=== PATIENT | male | born 1970 | race Caucasian/White ===

== ENCOUNTER 2017-07-25 05:30 | Day surgery (SDC) | payer OTHER ==
[2017-07-24 12:53] VITALS: BMI 28.1
--- NOTE | 2017-07-25 08:07 | HP ---
Satellite H - Chief Complaint Chief Complaint: left ankle fx - Past Medical History Allergies/Adverse Reactions: Allergies Allergy/AdvReac Type Severity Reaction Status Date / Time No Known Allergies Allergy Verified 07/25/17 06:51 - Current Medications Current Medications: Home Medications Medication Instructions Recorded Oxycodone HCl/Acetaminophen 1 - 2 tab PO Q6H #50 tab MDD 8 07/25/17 [Percocet 5-325 mg Tablet] Satellite Physical Exam - Physical Examination Vital Signs: Vital Signs Period Temp Pulse Resp BP Sys/Tavera Pulse Ox Last 24 Hr 98.5 F 78 16 119/82 97 General Appearance: Well Nourished, Well Developed, Alert & Oriented x3 ENT: Clear Lung: Normal air movement Heart: Regular rate & rhythm Extremities: Other (left ankle- + swelling, + ttp, dec rom, nvi xrays show displaced distal tibia and fibula fx) Neurological: Intact, Alert, Oriented Satellite Impression/Plan - Impression/Plan Impression: left ankle fx Operative Procedure: left ankle orif Date to be Performed: 07/25/17
[2017-07-25] MEDS ORDERED: MIDAZOLAM HCL 2 MG/2 ML SINGLE DOSE VIAL ONE ×3 (08:49→08:52)
[2017-07-25] MEDS ORDERED: fentaNYL CITRATE 250 MCG/5 ML VIAL ONE (08:49)
[2017-07-25] MEDS ORDERED: ROPIVACAINE HCL 0.5% 30ML VIAL ONE (08:51)
[2017-07-25] MEDS ORDERED: ceFAZolin SODIUM 1 GM VIAL IVPB ONE ×2 (09:24)
[2017-07-25] MEDS ORDERED: ONDANSETRON 4 MG/2 ML VIAL IVPUSH PRN (09:38)
[2017-07-25] MEDS ORDERED: oxyCODONE HCL 5 MG TABLET PO PRN (09:38)
[2017-07-25] MEDS ORDERED: LACTATED RINGERS SOLUTION 1,000 ML IV SCH (09:45)
--- NOTE | 2017-07-25 10:53 | OP ---
Operative Note - Note: Operative Date: 07/25/17 ([facility]) Pre-Operative Diagnosis: left ankle fx Operation: left distal tibia and fibula orif Post-Operative Diagnosis: Same as Pre-op Surgeon: Gideon Vick Glass Mechanic: Robert Viera Anesthesiologist/FIRER LOW PRESSURE: Eros Waldron Anesthesia: Spinal, Local Estimated Blood Loss (mls): 10 (tourniquet) Operative Report Dictated: Yes
[2017-07-25] MEDS ORDERED: CEFAZOLIN 1 GM in DEXTROSE 5%-WATER - 50 ML IVPB ONE (10:56)
--- NOTE | 2017-07-25 11:20 | OP ---
DATE OF OPERATION: 07/25/2017 PREOPERATIVE DIAGNOSIS: Displaced distal tibia/fibula fracture. POSTOPERATIVE DIAGNOSIS: Displaced distal tibia/fibula fracture. PROCEDURE: Open reduction, internal fixation of left distal tibia/fibula fracture. SURGICAL ATTENDING: Gideon Vick MD INSTRUCTIONAL AIDE: KORY Khan ANESTHESIA: Spinal and regional. CLOSURE: A [place] periarticular plate system with appropriate screws both medially and laterally on the fibula and the tibia, 2-0 for fascia and subcutaneous and jaylen for skin. ESTIMATED BLOOD LOSS: Negligible. TOURNIQUET TIME: Approximately an hour. COMPLICATIONS: None. CONDITION: To recovery in stable condition. DESCRIPTION OF THE OPERATIVE PROCEDURE: Patient taken to the operating room on July 25, 2017. Spinal and regional anesthesia was administered by the anesthesiologist. IV Kefzol was given prophylactically prior to the case. Patient was placed supine on the operating table. A well-padded pneumatic tourniquet was placed on the left proximal calf away from the fibula head. Left lower extremity was prepped and draped in the usual sterile fashion. The leg was exsanguinated with an Esmarch bandage. Tourniquet was inflated to 275 mmHg. First our attention was directed to the distal fibula. A 10- to 12-cm longitudinal incision over the distal fibula was incised, hemostasis achieved using Bovie cautery. Sharp dissection was carried down to the level of the fracture. Curets and irrigation were used to clean up the fracture site. It was a long oblique fracture which was anatomically reduced by using serrated reduction clamps. The fracture was lagged anterior to posterior x2, and using standard lag technique achieving good compression of the fracture. A distal fibula periarticular plate was then clamped to the fibula. One proximal and 1 distal screw was drilled, depth gauged with the appropriate size nonlocking screws to cinch the plate down to the bone. Multiple proximal and distal screws were then placed using the locking screw variety to further fixate the fracture. The 2 nonlocking screws were then removed and replaced with locking screws. Anatomical reduction and excellent position of the hardware was confirmed in the AP, mortise, and lateral views by using the image intensifier. After reducing the lateral malleolus, then medial malleolus, the medial tibia was found to be out to length and in excellent position. Therefore, the medial side was fixated with a medial plate in an almost percutaneous fashion. A small 2-cm incision was made distally over the medial malleolus. A long periosteal elevator was placed up the incision along the tibia. A plate of the appropriate size directed by fluoroscopy was slid underneath along the medial side of the tibia. Small incision was made proximally. The plate was then provisionally fixated to the bone by use of the guide pins that went through the plate. Fluoroscopy was used to confirm excellent position of the plate and anatomic reduction of the fracture in the AP, mortise, and lateral views. The oblique distal screw was drilled first, depth gauged, and then screwed to the appropriate size nonlocking screw which cinched the plate down to the bone. One proximal nonlocking screw was placed as well to cinch the plate to the bone, achieving excellent fixation. Multiple proximal and distal screws were then drilled, depth gauged, and screwed with the appropriate size locking screws, achieving excellent fixation. The AP, mortise, and lateral views revealed excellent anatomic reduction of the fracture with excellent position of the hardware. Both incisions were copiously irrigated. Subcutaneous and fascia were closed using 2-0 Vicryl and jaylen to skin. A sterile pressure dressing was placed over the incision, followed by a splint. Tourniquet was deflated. Total tourniquet time was approximately an hour. No complications. Jenny [id number]
[2017-07-25 11:53] VITALS: TEMP 97.8
[2017-07-25] MEDS ORDERED: ceFAZolin SODIUM 1 GM VIAL ONE (12:39)
[2017-07-25 14:47] VITALS: BP 122/71; PULSE 67
== END 2017-07-25 14:47 | disposition home or self-care (01) ==
LOC: JASU-SURG 05:30
PROVIDERS: ATTEND Orthopaedic Surgery
PROC: 0QSH04Z Reposition Left Tibia with Internal Fixation Device, Open Approach (ICD-10-PCS; 2017-07-25)
PROC: 0QSK04Z Reposition Left Fibula with Internal Fixation Device, Open Approach (ICD-10-PCS; principal; 2017-07-25 09:30)
DX: S82.392A Other fracture of lower end of left tibia, initial encounter for closed fracture (principal); S82.492A Other fracture of shaft of left fibula, initial encounter for closed fracture; X58.XXXA Exposure to other specified factors, initial encounter; Y93.9 Activity, unspecified; Y92.9 Unspecified place or not applicable; Y99.9 Unspecified external cause status
CPT/HCPCS: 76000-TC; 94760